=== PATIENT | female | born 1965 | race Caucasian/White ===

== ENCOUNTER 2021-05-07 16:38 | Inpatient (IN) | payer SELFPAY ==
[~2021-05-07] VITALS: Ht 157.5 cm; Wt 77.4 kg
--- NOTE | 2021-05-07 18:13 | NUR ---
PATIENT CURRENTLY GETTING VASC STUDY IN [facility]
[2021-05-07] MEDS ORDERED: apixaban 5mg tablet PO STA (18:37)
[2021-05-07] MEDS ORDERED: enoxaparin 100mg/ml syringe SUBCUT ONE (18:40)
[2021-05-07] MEDS ORDERED: piperacillin/tazo 3.375gm/50ml 50 ML IV ONE (18:40)
[2021-05-07] MEDS ORDERED: vancomycin/NS 1 GM ADD-VANTAGE 250 ML IV ONE (18:40)
[2021-05-07] MEDS ORDERED: normal saline 1000ML IV soln IV ONE (18:40)
[2021-05-07 19:04] LABS: BASOPHILS # (AUTO) 0.1 X10'3 (0-0.2); BASOPHILS % (AUTO) 0.7 % (0-1); EOSINOPHILS # (AUTO) 0.4 X10'3 (0-0.9); HEMATOCRIT 38.2 % (35.0-45.0); HEMOGLOBIN 12.7 g/dl (12.0-16.0); LYMPHOCYTES # (AUTO) 1.6 X10'3 (1.1-4.8); LYMPHOCYTES % (AUTO) 11.8 % (21-51); MEAN CORPUSCULAR HEMOGLOBIN 30.5 PG (27.0-31.0); MEAN CORPUSCULAR HGB CONC 33.2 g/dL (33.0-36.5); MEAN CORPUSCULAR VOLUME 91.8 FL (78-98); MONOCYTES # (AUTO) 1.2 X10'3 (0-0.9); MONOCYTES % (AUTO) 8.8 % (2-12); NEUTROPHILS # (AUTO) 10.1 X10'3 (1.8-7.7); NEUTROPHILS % (AUTO) 75.7 % (42-75); PLATELET COUNT 239 X10'3 (140-440); RED BLOOD COUNT 4.16 X10'6 (4.20-5.60); RED CELL DISTRIBUTION WIDTH 13.4 % (11.5-14.5); WHITE BLOOD COUNT 13.3 X10'3 (4.5-11.0)
[2021-05-07 19:22] LABS: ALANINE AMINOTRANSFERASE 40 U/L (12-78); ALBUMIN 3.3 G/DL (3.4-5.0); ALBUMIN/GLOBULIN RATIO 0.9 (1.1-1.5); ALKALINE PHOSPHATASE 87 IU/L (46-116); ANION GAP 8 (8-16); ASPARTATE AMINO TRANSFERASE 39 U/L (10-37); BILIRUBIN,TOTAL 0.4 MG/DL (0.1-1.0); BLOOD UREA NITROGEN 9 MG/DL (7-18); BUN/CREATININE RATIO 11.8 (6.6-38.0); CALCIUM 9.1 MG/DL (8.5-10.1); CHLORIDE 103 MMOL/L (99-107); CREATININE 0.76 MG/DL (0.40-0.90); GLUCOSE 93 MG/DL (70-104); MAGNESIUM 2.2 MG/DL (1.5-2.4); POTASSIUM 3.9 MMOL/L (3.5-5.1); SODIUM 142 MMOL/L (135-145); TOTAL CARBON DIOXIDE 31.3 MMOL/L (24-32); TOTAL PROTEIN 6.8 G/DL (6.4-8.2); eGFR 79 ML/MIN
[2021-05-07] MEDS ORDERED: HYDROcodone/acetaminophen 5mg/325mg tablet PO PRN (19:50)
[2021-05-07] MEDS ORDERED: ondansetron/PF 4mg/2ml inj IV PRN (19:50)
[2021-05-07] MEDS ORDERED: magnesium Cl slow-release 64mg tablet PO PRN (19:50)
[2021-05-07] MEDS ORDERED: acetaminophen 325mg tablet PO PRN ×2 (19:50)
[2021-05-07] MEDS ORDERED: morphine 2 MG/ML inj. syringe IV PRN ×2 (19:50)
[2021-05-07] MEDS ORDERED: magnesium 4gm in 100ml NS 100 ML IV PRN (19:50)
[2021-05-07] MEDS ORDERED: mag hydrox/Alum hydrox/simeth 30ml oral suspension PO PRN (19:50)
[2021-05-07] MEDS ORDERED: magnesium hydroxide 30ml (MOM) UD suspension PO PRN (19:50)
[2021-05-07] MEDS ORDERED: potassium Cl 40MEQ/1/2NS 520ml 520 ML IV PRN ×2 (19:50)
[2021-05-07] MEDS ORDERED: potassium Cl 20 mEq SR tablet PO PRN ×2 (19:50)
[2021-05-07] MEDS ORDERED: magnesium 2GM in 50ml NS 50 ML IV PRN (19:50)
[2021-05-07] MEDS: doxycycline inj 100 MG in normal saline 100ml IV soln 100 ML IV SCH (20:00)
[2021-05-07] MEDS: K and/or MAG REPLACEMENT MC SCH (20:00)
[2021-05-07] MEDS ORDERED: apixaban 5mg tablet PO SCH (20:00)
[2021-05-07] MEDS: normal saline 1000ml 1,000 ML IV SCH (20:01)
[2021-05-07] MEDS ORDERED: temazepam 15mg capsule PO PRN (21:00)
[2021-05-07 21:31] LABS: D-DIMER 7.25 MG/L FEU (0-0.50)
[2021-05-07 22:30] VITALS: BP 104/66
--- NOTE | 2021-05-07 22:30 | NUR ---
Patient in room [facility]. I have received report from TIO Plata and had the opportunity to ask questions and assume patient care.
[2021-05-08] VITALS: BP 103/63
--- NOTE | 2021-05-08 00:32 | NUR ---
Md Crews ordered urgent cta for chest PE paged CT
[2021-05-08] MEDS ORDERED: iohexol 350MG/ML 100ml bottle IV ONE (00:37)
--- NOTE | 2021-05-08 01:39 | NUR ---
Md Crews notified of critical results PAGER ID: [phone] MESSAGE: Coby De Leon [id number] [facility]sur 344B admitted for r leg DVT and cellulitis CTA- Chest resulted; findings bilateral pulmonary emboli with moderate thrombus burden. TIO Osman ex [id number]
[2021-05-08] MEDS: normal saline 1000ml 1,000 ML IV SCH ×2 (02:00→13:37)
[2021-05-08] MEDS ORDERED: PARO40TA PO (05:35)
[2021-05-08 06:18] LABS: BASOPHILS # (AUTO) 0.1 X10'3 (0-0.2); BASOPHILS % (AUTO) 0.9 % (0-1); EOSINOPHILS # (AUTO) 0.5 X10'3 (0-0.9); EOSINOPHILS % (AUTO) 6.3 % (0-6); HEMATOCRIT 35.2 % (35.0-45.0); HEMOGLOBIN 11.5 g/dl (12.0-16.0); LYMPHOCYTES # (AUTO) 1.8 X10'3 (1.1-4.8); LYMPHOCYTES % (AUTO) 22.2 % (21-51); MEAN CORPUSCULAR HEMOGLOBIN 30.4 PG (27.0-31.0); MEAN CORPUSCULAR HGB CONC 32.8 g/dL (33.0-36.5); MEAN CORPUSCULAR VOLUME 92.7 FL (78-98); MEAN PLATELET VOLUME 7.9 FL (7.4-10.4); MONOCYTES # (AUTO) 0.8 X10'3 (0-0.9); MONOCYTES % (AUTO) 9.8 % (2-12); NEUTROPHILS % (AUTO) 60.8 % (42-75); PLATELET COUNT 206 X10'3 (140-440); RED CELL DISTRIBUTION WIDTH 13.9 % (11.5-14.5); WHITE BLOOD COUNT 8.2 X10'3 (4.5-11.0)
[2021-05-08 06:24] LABS: ALBUMIN 2.6 G/DL (3.4-5.0); ANION GAP 5 (8-16); BLOOD UREA NITROGEN 7 MG/DL (7-18); BUN/CREATININE RATIO 9.7 (6.6-38.0); CALCIUM 7.9 MG/DL (8.5-10.1); CHLORIDE 108 MMOL/L (99-107); CREATININE 0.72 MG/DL (0.40-0.90); GLUCOSE 92 MG/DL (70-104); MAGNESIUM 2.2 MG/DL (1.5-2.4); POTASSIUM 4.2 MMOL/L (3.5-5.1); SODIUM 142 MMOL/L (135-145); TOTAL CARBON DIOXIDE 28.6 MMOL/L (24-32); eGFR 84 ML/MIN
--- NOTE | 2021-05-08 06:28 | NUR ---
Problems reprioritized. Patient report given, questions answered & plan of care reviewed with TIO Milian.
--- NOTE | 2021-05-08 06:36 | NUR ---
Patient in room [facility]. I have received report from TIO Osman and had the opportunity to ask questions and assume patient care.
[2021-05-08 07:00] VITALS: BP 153/72
[2021-05-08] MEDS: K and/or MAG REPLACEMENT MC SCH ×2 (07:25→20:00)
[2021-05-08] MEDS ORDERED: heparin 10,000 units/1 ML INJ IV ONE (08:05)
[2021-05-08] MEDS ORDERED: heparin 10,000 units/1 ML INJ IV PRN (08:05)
[2021-05-08] MEDS ORDERED: heparin 25,000 UNIT/250ml bag 250 ML IV SCH (08:05)
[2021-05-08] MEDS: doxycycline inj 100 MG in normal saline 100ml IV soln 100 ML IV SCH ×2 (08:57→20:17)
[2021-05-08] MEDS: HYDROcodone/acetaminophen 10/325mg tab PO PRN (09:44)
[2021-05-08] MEDS ORDERED: PARoxetine 20mg tablet PO ONE (12:20)
[2021-05-08] MEDS: heparin 25,000 UNIT/250ml bag 250 ML IV SCH ×2 (14:22→17:47)
[2021-05-08 18:00] VITALS: BP 131/79
--- NOTE | 2021-05-08 18:31 | NUR ---
Problems reprioritized. Patient report given, questions answered & plan of care reviewed with TIO Story.
[2021-05-08] MEDS: lactobacillus rhamnosus 10,000 MMU CELLS/CAPSULE PO SCH (20:17)
[2021-05-09] VITALS: BP 108/68
[2021-05-09] MEDS: HYDROcodone/acetaminophen 10/325mg tab PO PRN (00:09)
[2021-05-09] MEDS: normal saline 1000ml 1,000 ML IV SCH ×3 (03:19→20:38)
--- NOTE | 2021-05-09 06:24 | NUR ---
Problems reprioritized. Patient report given, questions answered & plan of care reviewed with Dena KINSEY.
--- NOTE | 2021-05-09 06:24 | NUR ---
Patient in room [facility]. I have received report from Porsha KINSEY and had the opportunity to ask questions and assume patient care.
[2021-05-09 06:47] LABS: EOSINOPHILS # (AUTO) 0.5 X10'3 (0-0.9); HEMOGLOBIN 11.9 g/dl (12.0-16.0); LYMPHOCYTES # (AUTO) 2.3 X10'3 (1.1-4.8); LYMPHOCYTES % (AUTO) 29.5 % (21-51); WHITE BLOOD COUNT 7.8 X10'3 (4.5-11.0)
[2021-05-09 06:49] LABS: BASOPHILS # (AUTO) 0.1 X10'3 (0-0.2); BASOPHILS % (AUTO) 1.5 % (0-1); EOSINOPHILS % (AUTO) 6.2 % (0-6); HEMATOCRIT 35.2 % (35.0-45.0); MEAN CORPUSCULAR HEMOGLOBIN 30.9 PG (27.0-31.0); MEAN CORPUSCULAR HGB CONC 33.9 g/dL (33.0-36.5); MONOCYTES # (AUTO) 0.6 X10'3 (0-0.9); MONOCYTES % (AUTO) 8.2 % (2-12); NEUTROPHILS # (AUTO) 4.3 X10'3 (1.8-7.7); NEUTROPHILS % (AUTO) 54.6 % (42-75); PLATELET COUNT 207 X10'3 (140-440); RED BLOOD COUNT 3.86 X10'6 (4.20-5.60); RED CELL DISTRIBUTION WIDTH 13.7 % (11.5-14.5)
[2021-05-09 06:54] LABS: ALBUMIN 2.8 G/DL (3.4-5.0); ANION GAP 8 (8-16); BLOOD UREA NITROGEN 6 MG/DL (7-18); BUN/CREATININE RATIO 8.3 (6.6-38.0); CALCIUM 8.6 MG/DL (8.5-10.1); CHLORIDE 107 MMOL/L (99-107); CREATININE 0.72 MG/DL (0.40-0.90); GLUCOSE 95 MG/DL (70-104); MAGNESIUM 2.2 MG/DL (1.5-2.4); POTASSIUM 3.8 MMOL/L (3.5-5.1); SODIUM 142 MMOL/L (135-145); eGFR 84 ML/MIN
[2021-05-09] MEDS: K and/or MAG REPLACEMENT MC SCH ×2 (07:24→20:00)
[2021-05-09] MEDS: doxycycline inj 100 MG in normal saline 100ml IV soln 100 ML IV SCH (07:54)
[2021-05-09] MEDS: lactobacillus rhamnosus 10,000 MMU CELLS/CAPSULE PO SCH ×2 (07:54→20:37)
[2021-05-09] MEDS: PARoxetine 20mg tablet PO SCH (07:55)
[2021-05-09] MEDS: heparin 25,000 UNIT/250ml bag 250 ML IV SCH (08:00)
[2021-05-09 11:00] VITALS: BP 121/77
[2021-05-09 18:00] VITALS: BP 122/57
--- NOTE | 2021-05-09 18:22 | NUR ---
Patient in room [facility] 344B. I have received report from TIO Fernandes and had the opportunity to ask questions and assume patient care.
--- NOTE | 2021-05-09 18:27 | NUR ---
Problems reprioritized. Patient report given, questions answered & plan of care reviewed with NIC KINSEY.
--- NOTE | 2021-05-09 18:30 | NUR ---
Heparin DVT PTT therapeutic at 47 sec. No changes needed
[2021-05-09] MEDS: DOXYCYCLINE 100MG CAPSULE PO SCH (20:37)
[2021-05-10] VITALS: BP 113/64
--- NOTE | 2021-05-10 01:10 | NUR ---
Heparin DVT PTT level is therapeutic at 46 sec. No rate changes needed.
[2021-05-10] MEDS: normal saline 1000ml 1,000 ML IV SCH (03:30)
[2021-05-10 06:00] VITALS: BP 129/75
[2021-05-10 06:50] LABS: BASOPHILS # (AUTO) 0.1 X10'3 (0-0.2); BASOPHILS % (AUTO) 1.3 % (0-1); EOSINOPHILS # (AUTO) 0.5 X10'3 (0-0.9); EOSINOPHILS % (AUTO) 6.7 % (0-6); HEMATOCRIT 36.3 % (35.0-45.0); LYMPHOCYTES # (AUTO) 2.5 X10'3 (1.1-4.8); LYMPHOCYTES % (AUTO) 32.4 % (21-51); MEAN CORPUSCULAR HEMOGLOBIN 30.5 PG (27.0-31.0); MEAN CORPUSCULAR HGB CONC 33.1 g/dL (33.0-36.5); MEAN PLATELET VOLUME 7.8 FL (7.4-10.4); MONOCYTES # (AUTO) 0.7 X10'3 (0-0.9); MONOCYTES % (AUTO) 9.5 % (2-12); NEUTROPHILS # (AUTO) 3.8 X10'3 (1.8-7.7); NEUTROPHILS % (AUTO) 50.1 % (42-75); PLATELET COUNT 234 X10'3 (140-440); RED BLOOD COUNT 3.95 X10'6 (4.20-5.60); WHITE BLOOD COUNT 7.6 X10'3 (4.5-11.0)
[2021-05-10 06:59] LABS: ALBUMIN 2.8 G/DL (3.4-5.0); ANION GAP 7 (8-16); BLOOD UREA NITROGEN 7 MG/DL (7-18); BUN/CREATININE RATIO 8.9 (6.6-38.0); CALCIUM 8.6 MG/DL (8.5-10.1); CHLORIDE 107 MMOL/L (99-107); CREATININE 0.79 MG/DL (0.40-0.90); GLUCOSE 91 MG/DL (70-104); MAGNESIUM 2.1 MG/DL (1.5-2.4); POTASSIUM 4.2 MMOL/L (3.5-5.1); SODIUM 141 MMOL/L (135-145); TOTAL CARBON DIOXIDE 27.4 MMOL/L (24-32); eGFR 76 ML/MIN
--- NOTE | 2021-05-10 07:30 | NUR ---
Heparin DVT PTT level is therapeutic at 49 sec. No rate changes needed.
[2021-05-10] MEDS: lactobacillus rhamnosus 10,000 MMU CELLS/CAPSULE PO SCH (07:48)
[2021-05-10] MEDS: PARoxetine 20mg tablet PO SCH (07:48)
[2021-05-10] MEDS: DOXYCYCLINE 100MG CAPSULE PO SCH (07:49)
[2021-05-10] MEDS: heparin 25,000 UNIT/250ml bag 250 ML IV SCH (07:53)
[2021-05-10] MEDS: K and/or MAG REPLACEMENT MC SCH (07:57)
[2021-05-10] MEDS ORDERED: DOXY-224 PO (10:23)
[2021-05-10] MEDS ORDERED: LACT1CAP26 PO (10:23)
[2021-05-10] MEDS ORDERED: APIX5TAB3 PO ×2 (10:23)
[2021-05-10 11:00] VITALS: BP 129/70
--- NOTE | 2021-05-10 15:20 | NUR ---
Pt escorted out to private vehicle with belongings and instructions. Indigent meds for eliquis, abx and culturelle called to [facility] [address] by our pharmacy.
--- NOTE | 2021-05-10 15:25 | NUR ---
Both Rt hand and Lt forearm IV's dc'd at 1500.
== END 2021-05-10 15:15 | disposition home or self-care (01) | DRG 299 ==
LOC: ER 16:39 → ED HOLD 19:48 → SUR 3N 22:25
PROVIDERS: ADMIT Internal Medicine; ATTEND Internal Medicine
PROC: B32T1ZZ Computerized Tomography (CT Scan) of Left Pulmonary Artery using Low Osmolar Contrast (ICD-10-PCS; principal; 2021-05-08)
PROC: B3201ZZ Computerized Tomography (CT Scan) of Thoracic Aorta using Low Osmolar Contrast (ICD-10-PCS; 2021-05-08)
PROC: B32S1ZZ Computerized Tomography (CT Scan) of Right Pulmonary Artery using Low Osmolar Contrast (ICD-10-PCS; 2021-05-08)
DX: I82.413 Acute embolism and thrombosis of femoral vein, bilateral (principal); I26.99 Other pulmonary embolism without acute cor pulmonale; D68.51 Activated protein C resistance; L03.115 Cellulitis of right lower limb; I82.443 Acute embolism and thrombosis of tibial vein, bilateral; I82.433 Acute embolism and thrombosis of popliteal vein, bilateral; F32.9 Major depressive disorder, single episode, unspecified; Z79.01 Long term (current) use of anticoagulants; Z86.718 Personal history of other venous thrombosis and embolism
CPT/HCPCS: 36415; 71045; 71275; 80048; 80053; 83735; 84145; 84484; 85025; 85379; 85730; 87081; 93005; 93306; 93970; 96365; 96368; 96372; 97116; 97161; 97530; 99285; G0378; J1644; J1650; J2543; J3370; J3490; J7030; Q9967

== ENCOUNTER 2021-06-11 10:27 | Emergency (ER) | payer SELFPAY ==
[~2021-06-11] VITALS: Ht 157.5 cm; Wt 77.3 kg
[~2021-06-11 10:27] MED LIST: APIX5TAB3 PO; DOXY-224 PO; LACT1CAP26 PO; PARO40TA PO
[2021-06-11 16:24] VITALS: BP 138/81
--- NOTE | 2021-06-11 16:25 | NUR ---
PT IS BEING EVALUATED BY DR SALVADOR IN TRIAGE
[2021-06-11] MEDS ORDERED: DOXY100C77 PO (16:31)
== END 2021-06-11 16:48 | disposition home or self-care (01) ==
LOC: ER 10:28
DX: L03.115 Cellulitis of right lower limb (principal)
CPT/HCPCS: 99283

== ENCOUNTER 2021-06-27 22:28 | Emergency (ER) | payer OTHER ==
[~2021-06-27] VITALS: Ht 157.5 cm; Wt 77.0 kg
[2021-06-27 22:36] VITALS: BP 139/71
== END 2021-06-28 00:10 | disposition home or self-care (01) ==
LOC: ER 22:28
DX: R60.0 Localized edema (principal); L08.89 Other specified local infections of the skin and subcutaneous tissue
CPT/HCPCS: 99281

== ENCOUNTER 2024-05-22 08:24 | Emergency (ER) | payer MEDICAID ==
[~2024-05-22] VITALS: Ht 157.5 cm; Wt 85.6 kg
[~2024-05-22 08:24] MED LIST changes: +ALBU10.7; +BUPR1FIL20 SL; -DOXY-224 PO; -LACT1CAP26 PO; +MV C PO; +OLME20TA69 PO; +PARO-154 PO; -PARO40TA PO
[2024-05-22 08:30] VITALS: TEMP 97.9
[2024-05-22] MEDS: HYDROcodone/acetaminophen 5mg/325mg tablet PO ONE (09:05)
[2024-05-22 09:20] VITALS: BP 141/77; PULSE 68; RESP 16; O2SAT 98
== END 2024-05-22 09:23 | disposition home or self-care (01) ==
LOC: ER 08:24
DX: S81.801A Unspecified open wound, right lower leg, initial encounter (principal); Z79.899 Other long term (current) drug therapy; X58.XXXA Exposure to other specified factors, initial encounter; Y93.89 Activity, other specified; Y92.89 Other specified places as the place of occurrence of the external cause; Y99.8 Other external cause status
CPT/HCPCS: 99283; A6449

== ENCOUNTER 2025-01-02 11:17 | Inpatient (IN) | payer MEDICAID ==
[~2025-01-02] VITALS: Ht 152.4 cm; Wt 84.0 kg
[~2025-01-02 11:17] MED LIST changes: -BUPR1FIL20 SL; -MV C PO; -OLME20TA69 PO; -PARO-154 PO; +calcium chloride 100 MG/1 ML inj IV ONE
[2025-01-02] MEDS ORDERED: NORepinephrine 8mg/ 250ml NS 250 ML IV SCH (11:50)
[2025-01-02 12:25] LABS: ABG BASE EXCESS -22.7 mmol/L (-2.0-3.0); ABG HCO3 10.1 mmol/L (21.0-28.0); ABG OXYGEN SATURATION 70.5 % (94.0-98.0); ABG PCO2 (T) 53.9 mmHg (32.0-45.0); ABG PH (T) 6.892 (7.350-7.450); ABG PO2 (T) 57.1 mmHg (83.0-108.0); ALLEN'S TEST Modified; FCOHb 0.3 % (0.5-1.5); FHHb 29.3 % (0.0-5.0); FLOW 15 L/min; FMetHb 0.3 % (0.0-1.5); FO2Hb 70.1 % (94.0-98.0); MODE RESUS BAG; TOTAL HEMOGLOBIN 11.9 G/dl (12.0-16.0)
[2025-01-02] MEDS: pantoprazole 40 MG vial IV ONE (12:28)
[2025-01-02] MEDS: octreotide 100mcg/1 ml ampule SQ ONE (12:28)
[2025-01-02] MEDS: pantoprazole 40MG/NS 100ML BAG 100 ML IV SCH (12:29)
[2025-01-02 12:37] VITALS: PULSE 114; RESP 18; O2SAT 99
[2025-01-02] MEDS: WATER FOR INJECTION IV ONE (12:55)
[2025-01-02] MEDS: STERILE IV ONE (12:55)
[2025-01-02] MEDS: HUM PROTHROMB CPLX LANS IV ONE (12:55)
[2025-01-02] MEDS: piperacillin/tazo 4.5gm/100ml 100 ML IV ONE (12:55)
[2025-01-02 12:56] LABS: BASOPHILS # (AUTO) 0.2 X10'3 (0-0.2); BASOPHILS % (AUTO) 0.6 % (0-1); EOSINOPHILS # (AUTO) 0.1 X10'3 (0-0.9); EOSINOPHILS % (AUTO) 0.3 % (0-6); HEMATOCRIT 35.7 % (35.0-45.0); HEMOGLOBIN 11.1 g/dl (12.0-16.0); LYMPHOCYTES # (AUTO) 2.9 X10'3 (1.1-4.8); LYMPHOCYTES % (AUTO) 10.2 % (21-51); MEAN CORPUSCULAR HGB CONC 31.1 g/dL (33.0-36.5); MEAN CORPUSCULAR VOLUME 103.1 FL (78-98); MEAN PLATELET VOLUME 7.9 FL (7.4-10.4); MONOCYTES # (AUTO) 1.4 X10'3 (0-0.9); MONOCYTES % (AUTO) 4.9 % (2-12); NEUTROPHILS # (AUTO) 24.1 X10'3 (1.8-7.7); PLATELET COUNT 129 X10'3 (140-440); RED BLOOD COUNT 3.46 X10'6 (4.20-5.60); RED CELL DISTRIBUTION WIDTH 16.9 % (11.5-14.5)
[2025-01-02] MEDS: NORepinephrine 8mg/ 250ml NS 250 ML IV PRN (12:56)
[2025-01-02] MEDS: octreotide inj. 500 MCG in normal saline 100ml IV soln 97.5 ML IV SCH (12:57)
[2025-01-02] MEDS: SODIUM BICARBONATE 150MEQ IN D5W 1,150 ML IV SCH (12:57)
[2025-01-02] MEDS ORDERED: epiNEPHrine 0.1mg/ml 10ml syringe ONE ×2 (13:00→17:00)
[2025-01-02] MEDS ORDERED: NORepinephrine 8 MG in NS 250 ML BAG (32 mcg/ml) IV ONE (13:00)
[2025-01-02] MEDS ORDERED: rocuronium bromide 100mg/10ml (10mg/ml) injection IV ONE (13:00)
[2025-01-02 13:05] LABS: WHITE BLOOD COUNT 28.7 X10'3 (4.5-11.0)
[2025-01-02 13:19] LABS: APTT 45 SECONDS (22-32); D-DIMER 16.96 MG/L FEU (0-0.50); FIBRINOGEN 117 MG/DL (177-424); PROTHROMBIN TIME 20.3 SECONDS (9.0-12.0)
[2025-01-02] MEDS ORDERED: acetaminophen 325mg tablet PO PRN ×2 (13:25)
[2025-01-02] MEDS ORDERED: morphine 4 MG/ML inj SYRINge IV PRN (13:25)
[2025-01-02] MEDS ORDERED: magnesium hydroxide 30ml (MOM) UD suspension PO PRN (13:25)
[2025-01-02] MEDS ORDERED: ondansetron/PF 4mg/2ml inj IV PRN (13:25)
[2025-01-02] MEDS ORDERED: morphine 2 MG/ML inj. syringe IV PRN (13:25)
[2025-01-02 13:27] LABS: ALBUMIN 1.5 G/DL (3.4-5.0); ALBUMIN/GLOBULIN RATIO 0.7 (1.1-1.5); ALKALINE PHOSPHATASE 122 IU/L (46-116); ANION GAP 29 (8-16); BLOOD UREA NITROGEN 51 MG/DL (7-18); BUN/CREATININE RATIO 21.5 (10.0-20.0); CHLORIDE 97 MMOL/L (99-107); CREATININE 2.37 MG/DL (0.40-0.90); GLUCOSE 88 MG/DL (70-104); LIPASE 102 U/L (16-77); MAGNESIUM 2.5 MG/DL (1.5-2.4); PRO BRAIN NATRIURETIC PEPTIDE 723 PG/ML (0-125); SODIUM 136 MMOL/L (135-145); TOTAL PROTEIN 3.8 G/DL (6.4-8.2); eCRCL 19 ML/MIN; eGFR 21 ML/MIN
[2025-01-02 13:31] LABS: ABG BASE EXCESS -23.2 mmol/L (-2.0-3.0); ABG HCO3 8.4 mmol/L (21.0-28.0); ABG OXYGEN SATURATION 99.3 % (94.0-98.0); ABG PCO2 (T) 39.2 mmHg (32.0-45.0); ABG PH (T) 6.948 (7.350-7.450); ABG PO2 (T) 268.5 mmHg (83.0-108.0); ALLEN'S TEST POSITIVE; FCOHb 0.3 % (0.5-1.5); FHHb 0.7 % (0.0-5.0); FMetHb 0.3 % (0.0-1.5); FO2Hb 98.7 % (94.0-98.0); MODE VENT - AC/PRVC; PEEP 5 cm H2O; RESPIRATORY RATE 18 b/min; TIDAL VOLUME 425 mL; TOTAL HEMOGLOBIN 13.8 G/dl (12.0-16.0)
[2025-01-02 13:32] VITALS: PULSE 204; RESP 18; O2SAT 99
[2025-01-02] MEDS ORDERED: iohexol 350MG/ML 100ml bottle IV ONE (13:32)
[2025-01-02 13:44] LABS: CREATINE KINASE 619 U/L (26-192); POTASSIUM 5.5 MMOL/L (3.5-5.1)
[2025-01-02 14:10] VITALS: PULSE 124; RESP 18
[2025-01-02] MEDS: LidoCAINE 2% Topical Jelly 11mL syringe (UROJET) TOP ONE (14:11)
[2025-01-02] MEDS ORDERED: vasopressin inj. 40 UNIT in normal saline 50ml IV soln 38 ML IV ONE (14:50)
[2025-01-02] MEDS ORDERED: vasopressin inj. 40 UNIT in normal saline 50ml IV soln 38 ML IV SCH ×2 (15:01→15:03)
[2025-01-02 15:31] LABS: BASOPHILS # (AUTO) 0.2 X10'3 (0-0.2); BASOPHILS % (AUTO) 0.5 % (0-1); EOSINOPHILS # (AUTO) 0.1 X10'3 (0-0.9); EOSINOPHILS % (AUTO) 0.3 % (0-6); HEMATOCRIT 38.3 % (35.0-45.0); HEMOGLOBIN 12.3 g/dl (12.0-16.0); LYMPHOCYTES # (AUTO) 3.4 X10'3 (1.1-4.8); LYMPHOCYTES % (AUTO) 9.1 % (21-51); MEAN CORPUSCULAR HEMOGLOBIN 31.7 PG (27.0-31.0); MEAN CORPUSCULAR HGB CONC 32.2 g/dL (33.0-36.5); MEAN CORPUSCULAR VOLUME 98.4 FL (78-98); MEAN PLATELET VOLUME 6.8 FL (7.4-10.4); MONOCYTES # (AUTO) 0.5 X10'3 (0-0.9); MONOCYTES % (AUTO) 1.3 % (2-12); NEUTROPHILS % (AUTO) 88.8 % (42-75); PLATELET COUNT 131 X10'3 (140-440); RED BLOOD COUNT 3.89 X10'6 (4.20-5.60); RED CELL DISTRIBUTION WIDTH 16.9 % (11.5-14.5)
[2025-01-02 15:33] LABS: LACTATE DEHYDROGENASE 6430 U/L (81-234); PHOSPHORUS 11.7 MG/DL (2.3-4.5); TOTAL CARBON DIOXIDE 10.2 MMOL/L (24-32)
[2025-01-02 15:35] LABS: WHITE BLOOD COUNT 37.2 X10'3 (4.5-11.0)
[2025-01-02 15:39] LABS: ALANINE AMINOTRANSFERASE 4308 U/L (12-78); ASPARTATE AMINO TRANSFERASE 6188 U/L (10-37)
[2025-01-02 16:02] LABS: ANISOCYTOSIS 1+; NUCLEATED RED BLOOD CELLS 1 /100WBC (0-0); PLATELET ESTIMATE DECREASED; POLYCHROMASIA FEW; TOTAL CELLS COUNTED 100
[2025-01-02 16:04] LABS: TOTAL CELLS COUNTED 100
[2025-01-02 16:05] LABS: ANISOCYTOSIS 2+; PLATELET ESTIMATE DECREASED
[2025-01-02 16:06] LABS: BURR CELLS 2+; MICROCYTOSIS 2+
[2025-01-02 16:12] VITALS: PULSE 133; RESP 19; O2SAT 72
[2025-01-02 17:00] VITALS: BP 52/21; PULSE 72; RESP 7
[2025-01-02] MEDS ORDERED: piperacillin/tazo 4.5gm/100ml 100 ML IV SCH (21:00)
== END 2025-01-02 17:13 | DRG 720 ==
LOC: ER 11:18 → ED HOLD 13:29
PROVIDERS: ADMIT Internal Medicine Critical Care Medicine; ATTEND Internal Medicine Critical Care Medicine
PROC: 0BH17EZ Insertion of Endotracheal Airway into Trachea, Via Natural or Artificial Opening (ICD-10-PCS; principal; 2025-01-02)
PROC: 5A12012 Performance of Cardiac Output, Single, Manual (ICD-10-PCS; 2025-01-02)
PROC: 5A1935Z Respiratory Ventilation, Less than 24 Consecutive Hours (ICD-10-PCS; 2025-01-02)
PROC: 30233R1 Transfusion of Nonautologous Platelets into Peripheral Vein, Percutaneous Approach (ICD-10-PCS; 2025-01-02)
PROC: 30233N1 Transfusion of Nonautologous Red Blood Cells into Peripheral Vein, Percutaneous Approach (ICD-10-PCS; 2025-01-02)
PROC: 02HV33Z Insertion of Infusion Device into Superior Vena Cava, Percutaneous Approach (ICD-10-PCS; 2025-01-02)
PROC: B548ZZA Ultrasonography of Superior Vena Cava, Guidance (ICD-10-PCS; 2025-01-02)
DX: A41.9 Sepsis, unspecified organism (principal); D65 Disseminated intravascular coagulation [defibrination syndrome]; I46.9 Cardiac arrest, cause unspecified; J96.01 Acute respiratory failure with hypoxia; R57.8 Other shock; E87.20 Acidosis, unspecified; K92.2 Gastrointestinal hemorrhage, unspecified; Z66 Do not resuscitate; N17.9 Acute kidney failure, unspecified; D47.3 Essential (hemorrhagic) thrombocythemia; Z79.01 Long term (current) use of anticoagulants; Z86.711 Personal history of pulmonary embolism; Z79.899 Other long term (current) drug therapy; Z51.5 Encounter for palliative care
CPT/HCPCS: 31500; 36415; 36430; 36556; 36600; 71045; 80053; 82550; 82803; 83605; 83615; 83690; 83735; 83880; 84100; 84484; 85007; 85018; 85025; 85379; 85384; 85610; 85730; 86885; 86900; 86901; 86920; 87040; 87077; 87186; 92950; 93005; 94002; 94760; 99291; 99292; A6213; A6258; A6402; C1758; G0378; J0171; J0282; J0461; J1250; J2354; J2470; J2543; J3490; J7030; J7040; J7168; P9016; P9035; Q9967